=== PATIENT | male | born 1970 | race Caucasian/White ===

== ENCOUNTER 2020-12-31 01:30 | Day surgery (SDC) | payer BC, SELFPAY ==
[2020-12-25 09:59] VITALS: BMI 25.2
--- NOTE | 2020-12-31 09:51 | WPDGICN ---
Assessment and Plan Assessment and plan (1) Encounter for screening colonoscopy: Code(s): Z12.11 - Encounter for screening for malignant neoplasm of colon Status: Acute Assessment and Plan: patient presents for screening colonoscopy. He appears to be at average risk for colon polyps. GI Consult Note Consult date/time: 12/31/20 09:51 HPI: Anders Fang is a 50 year old male Presents for screening colonoscopy. Patient's current weight appetite bowel movements are normal. He denies abdominal pain. He has had no bleeding. Family history is noncontributory. Review of Systems Review of Systems: All systems reviewed & are unremarkable except as noted in HPI and below PMFSH Family History Family History Father Malignant neoplasm of prostate Sibling Malignant neoplasm of prostate Social History Social History (Updated 08/21/20 @ 08:35 by Adrianne Hoover MA) Smoking status: Never smoker Alcohol intake: current Alcohol use details: rare social drink Substance use: never Substance use type: does not use Living arrangements: with family Spiritual care concerns: No Meds Home Medications and Allergies Home Medications Medication Instructions Recorded Confirmed Type sildenafil (pulm.hypertension) 20 See Rx Instructions PO ONCE PRN 05/29/20 12/25/20 Rx mg tablet #90 tablet propranolol 20 mg tablet 20 mg PO ONCE PRN #30 tablet 07/21/20 12/25/20 Rx zolpidem 10 mg tablet 10 mg PO DAILY PRN #30 tablet 08/21/20 12/25/20 Rx hydrocodone 5 mg-acetaminophen 325 1 tablet PO BID PRN #60 tablet 08/29/20 12/25/20 Rx mg tablet clotrimazole 1 applic TOPICAL Q12H PRN 12/25/20 12/25/20 History cyclobenzaprine 10 mg PO TID PRN 12/25/20 12/25/20 History Allergies Allergy/AdvReac Type Severity Reaction Status Date / Time No Known Allergies Allergy Verified 12/25/20 09:56 Exam Narrative: Physical exam reveals patient be alert. Vital signs stable. HEENT exam is unremarkable. Patient is anicteric. Lungs are clear to auscultation and percussion. Heart is without murmur or extra sounds. Abdominal exam bowel sounds are present soft nontender with no organomegaly. Digital external rectal exam is normal
[2020-12-31 09:58] VITALS: BP 137/84; PULSE 113; RESP 16; TEMP 35.9; O2SAT 99
[2020-12-31] MEDS: LACTATED RINGERS 1,000 ML 150 ML IV CONT (10:07)
--- NOTE | 2020-12-31 10:24 | P.PNAN_ITS ---
Anes - Initial Pre Proc Eval Procedure: Operation Date: 12/31/20 10:30 Proposed Procedures p Screening Colonoscopy - Kris Calero MD Date/Time: 12/31/20 10:24 Surgeon: Kris Calero MD Pre Op Diagnosis: neoplasm screening Patient Data Age: 50 Gender: M Height: 1.8 m Weight: 80 kg Last Vital Signs Temp 35.9 C L 12/31/20 09:58 Pulse 113 H 12/31/20 09:58 Resp 16 12/31/20 09:58 BP 137/84 12/31/20 09:58 Pulse Ox 99 12/31/20 09:58 Allergies Allergy/AdvReac Type Severity Reaction Status Date / Time No Known Allergies Allergy Verified 12/31/20 09:57 Home Medications Medication Instructions Recorded Confirmed Type sildenafil (pulm.hypertension) 20 See Rx Instructions PO ONCE PRN 05/29/20 12/31/20 Rx mg tablet #90 tablet propranolol 20 mg tablet 20 mg PO ONCE PRN #30 tablet 07/21/20 12/31/20 Rx zolpidem 10 mg tablet 10 mg PO DAILY PRN #30 tablet 08/21/20 12/31/20 Rx hydrocodone 5 mg-acetaminophen 325 1 tablet PO BID PRN #60 tablet 08/29/20 12/31/20 Rx mg tablet clotrimazole 1 applic TOPICAL Q12H PRN 12/25/20 12/31/20 History cyclobenzaprine 10 mg PO TID PRN 12/25/20 12/31/20 History Patient hx anesthesia problems: none Family hx anesthesia problems: none Results Review: All pre-operative results and documents have been reviewed as part of the pre-operative evaluation. [facility] Past Medical History Medical History (Updated 12/31/20 @ 10:25 by Rajan George MD) Back pain Insomnia Family History Family History Father Malignant neoplasm of prostate Sibling Malignant neoplasm of prostate Social History Social History (Updated 08/21/20 @ 08:35 by Adrianne Hoover MA) Smoking status: Never smoker Alcohol intake: current Alcohol use details: rare social drink Substance use: never Substance use type: does not use Living arrangements: with family Spiritual care concerns: No Anes - Eval Final PreProcedure Day of Procedure 12/31/20 10:24 Patient weight: normal Heart: regular rate and rhythm Lungs: clear to auscultation and normal air movement Airway: Mallampati scale class II Neurological: alert and oriented Last oral intake: >/= 8 hours ASA classification: II Emergent: no Anesthetic plan: proceed Anesthesia type and monitoring: general GIVS Results Review: All pre-operative results and documents have been reviewed as part of the pre-operative evaluation. Informed Consent: The patient's anesthetic plan and its attendant risks and benefits were discussed with the patient/family/POA. Questions were solicited and answers provided to the satisfaction of the patient/family/POA.
[2020-12-31 10:46] VITALS: BP 127/81; PULSE 95; RESP 22; O2SAT 99
[2020-12-31 10:56] VITALS: BP 123/82; PULSE 95; RESP 18; O2SAT 99
== END 2020-12-31 11:15 | disposition home or self-care (01) ==
PROVIDERS: PCP Internal Medicine; Visit Provider Internal Medicine Gastroenterology
PROC: 0DJD8ZZ Inspection of Lower Intestinal Tract, Via Natural or Artificial Opening Endoscopic (ICD-10-PCS; CPT 45378; principal; 2020-12-31 10:30)
DX: Z12.11 Encounter for screening for malignant neoplasm of colon (principal); K64.8 Other hemorrhoids; G47.00 Insomnia, unspecified
CPT/HCPCS: 45378; J2704; J7120

== ENCOUNTER 2021-09-28 08:02 | Outpatient (CLI) | payer BC, SELFPAY ==
--- NOTE | 2021-10-13 00:01 | WPDHOMESLEEP ---
Sleep Study - Home Unattended Date of Study: 09/28/21 Ordering Provider: Peter Ch DO Interpreting Provider: Debbi Borja DO Home Sleep Study Type: Apnea Link Air Height: 1.78 m Weight: 81.647 kg Body Mass Index: 25.8 Neck Circumference (inches): 15.5 [place]: 13 Reason for Sleep Study Unrefreshing sleep Sleep History The patient is a 51-year-old male with back pain and insomnia that had a sleep study ordered by his primary care physician for evaluation of sleep apnea. 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 He occasionally awakens from sleep short of breath. He rarely awakens at night with heartburn, belching or cough. He occasionally snores loud enough that others complain. He rarely has trouble sleeping when he has a cold. He occasionally wakes up gasping for air throughout the night. He rarely has breathing problems at night observed by himself or others. He rarely sweats excessively at night. He occasionally has heart palpitations or irregular heartbeats during the night. He occasionally falls asleep during the day and rarely falls asleep while driving. He denies cataplexy. He occasionally has trouble at school or work due to sleepiness. He rarely feels unable to move while waking up or falling asleep. He rarely experiences vivid dreamlike scenes upon awakening or falling asleep. He denies feeling afraid of going asleep he occasionally has nightmares. He frequently remembers his dreams. He occasionally has thoughts racing through his mind. He rarely feels sad or depressed. He occasionally has anxiety. He rarely has muscular tension. He rarely notices parts of his body jerk. He occasionally kicks during the night. He rarely has crawling and aching feelings in his legs and rarely has leg pain during the night. He occasionally grinds his teeth during sleep frequently awakens with morning jaw pain. He is occasionally bothered by pain during the day but rarely awakened by pain during the night. He occasionally wakes up feeling stiff in morning. He rarely wakes up with sore achy muscles. He rarely wakes up with pain in the neck, spine or other joints. He goes to bed at 10:30 p.m. on both weekdays and weekends. He is able to fall asleep within 5 minutes. He wakes up 1-2 times throughout the night to urinate. He is able to fall back asleep within 5 minutes. He wakes up at 5:50 a.m. on weekdays and at 6:30 a.m. on the weekends. He typically gets 7 hours of sleep per night. He will stay in bed for 5 minutes after waking up in the morning. He currently lives with his and 2 adult children. Does not consume any caffeinated beverages within 2 hours of bedtime. He does not engage in physical exercise before bedtime. He will watch television before falling asleep. He will take naps in the afternoon or the evening and they are refreshing. He drinks 2 caffeinated beverages per day. He denies tobacco, alcohol and recreational drug use. [facility] Past Medical History Medical History Back pain Insomnia Family History Family History Father Malignant neoplasm of prostate Sibling Malignant neoplasm of prostate Social History Social History Smoking status: Never smoker Alcohol intake: current Alcohol use details: rare social drink Substance use: never Substance use type: does not use Spiritual care concerns: No Medications Home Medications Medication Instructions Recorded Confirmed Type alprazolam 0.25 mg tablet (Xanax) 0.25 mg PO QHS PRN anxiety #10 tabs 08/23/21 08/23/21 Rx clotrimazole 1 % topical cream 1 applic topical Q12H PRN Skin 08/23/21 08/23/21 Rx Irritation #30 grams cyclobenzaprine 10 mg tablet 10 mg PO TID PRN Muscle Spasm #30 08/23/21 08/23/21 Rx tabs sildenafil (pulm.hypertension) 20 See
[2021-10-13 00:06] VITALS: BMI 25.8
== END 2021-09-29 11:25 | disposition home or self-care (01) ==
LOC: ANHCSM 08:03
PROVIDERS: PCP Internal Medicine; Visit Provider Internal Medicine
DX: G47.9 Sleep disorder, unspecified (principal); R53.83 Other fatigue; G47.30 Sleep apnea, unspecified
CPT/HCPCS: 95806